=== PATIENT | female | born 1965 | race Caucasian/White ===

== ENCOUNTER → 2017-05-26 | Outpatient (CLI) | payer OTHER ==
[~2017-05-26] MED LIST: CHOL100094 PO; CIT20 PO; FLUT16SP20 NS; LOR5 PO; MAGN400T37 PO; PRE5 PO; RAN150 PO; TACR1CAP15 PO; TUM500 PO; VALS40TA6 PO; [UNRECOGNIZED DRUG - CODE] PO; bp med; vit e
--- NOTE | 2017-05-27 16:17 | RADIOLOGY IMAGING REPORT ---
FACILITY: [facility] PATIENT NAME: WILMA EARL : [id number] MR: [id number] V: [id number] EXAM DATE: [id number] ORDERING PHYSICIAN: AHSAN AC TECHNOLOGIST: Amy Price PROCEDURE:BILATERAL DIGITAL SCREENING MAMMOGRAM WITH CAD ASSISTED INTERPRETATION & 3D TOMOSYNTHESIS COMPARISON:Prior mammograms 12/05/13, 12/25/11 INDICATIONS:SCREENING FINDINGS: Scattered fibroglandular tissue. The breast density has decreased compared to prior. No significant mass, microcalcifications or architectural distortion. DIAGNOSTIC CATEGORY 1--NEGATIVE. RECOMMENDATIONS: ROUTINE MAMMOGRAM AND CLINICAL EVALUATION. IMPRESSION: BIRADS 1: Normal exam Annual mammographic screening recommended. Dictated by: Bigg Elias on 05/27/2017 at 10:03 Transcribed by: MARCUS on 05/27/2017 at 10:19 Approved by: Bigg Elias on 05/27/2017 at 16:16 [facility]
== END ==
LOC: MAMO 01:49
PROVIDERS: ATTEND Obstetrics & Gynecology
DX: Z12.31 Encounter for screening mammogram for malignant neoplasm of breast (principal)
CPT/HCPCS: 77063; 77067